=== PATIENT | male | born 1975 | race Caucasian/White ===

== ENCOUNTER 2018-01-06 06:32 | Emergency (ER) | payer OTHER ==
[~2018-01-06] VITALS: Ht 157.5 cm; Wt 70.8 kg
[2018-01-06 06:35] VITALS: Ht 157.5 cm; Wt 70.8 kg
[2018-01-06 07:16] LABS: BASOPHIL % 0.8 % (0-2); PLATELET COUNT 259 x10^3mcL (130-400); RED CELL DISTRIBUTION WIDTH 12.7 % (11.5-14.5)
[2018-01-06 07:18] LABS: CALCIUM 8.7 mg/dL (8.5-10.1); CARBON DIOXIDE 23.6 mmol/L (21-32); CHLORIDE SERUM 104 mmol/L (98-107); CREATININE SERUM 1.1 mg/dL (0.7-1.3); GFR1 > 60 mL/min; GLUCOSE SERUM 113 mg/dL (74-106); POTASSIUM SERUM 3.8 mmol/L (3.5-5.1); SODIUM SERUM 139 mmol/L (136-145)
[2018-01-06 07:22] LABS: ALBUMIN 4.3 g/dL (3.4-5.0); ALKALINE PHOSPHATASE 82 U/L (46-116); ALT/SGPT 35 U/L (16-63); AST/SGOT 15 U/L (15-37); BILIRUBIN TOTAL 1.6 mg/dL (0.20-1.00)
[2018-01-06 07:24] LABS: TOTAL PROTEIN, SERUM 8.4 g/dL (6.4-8.2)
[2018-01-06 09:01] LABS: AMPHETAMINE QUAL UR NONE DETECTED (See below)
[2018-01-06 11:52] VITALS: BP 126/72
== END 2018-01-06 11:52 | disposition home or self-care (01) ==
LOC: ED 06:32
PROVIDERS: Emergency Medicine
DX: R07.2 Precordial pain (principal); R20.2 Paresthesia of skin
CPT/HCPCS: 36415; Q0092

== ENCOUNTER 2018-04-02 09:26 | Emergency (ER) | payer OTHER ==
[~2018-04-02] VITALS: Ht 157.5 cm; Wt 67.1 kg
[2018-04-02 09:30] VITALS: BP 141/91; Ht 157.5 cm; Wt 67.1 kg
== END 2018-04-02 10:01 | disposition home or self-care (01) ==
LOC: ED 09:26
DX: S40.021A Contusion of right upper arm, initial encounter (principal); W18.30XA Fall on same level, unspecified, initial encounter; Y93.9 Activity, unspecified; Y92.89 Other specified places as the place of occurrence of the external cause; Y99.8 Other external cause status

== ENCOUNTER 2018-06-15 08:04 | Emergency (ER) | payer OTHER ==
[~2018-06-15] VITALS: Ht 157.5 cm; Wt 68.5 kg
[2018-06-15 08:14] VITALS: Ht 157.5 cm; Wt 68.5 kg
[2018-06-15 10:14] VITALS: BP 122/77
== END 2018-06-15 10:14 | disposition home or self-care (01) ==
LOC: ED 08:04
DX: J06.9 Acute upper respiratory infection, unspecified (principal)
CPT/HCPCS: 82962; Q0092

== ENCOUNTER 2018-09-05 14:33 | Emergency (ER) | payer OTHER ==
[~2018-09-05] VITALS: Ht 157.5 cm; Wt 68.9 kg
[2018-09-05 14:43] VITALS: Ht 157.5 cm; Wt 68.9 kg
[2018-09-05 16:40] LABS: BASOPHIL % 0.5 % (0-2); PLATELET COUNT 251 x10^3mcL (130-400); RED CELL DISTRIBUTION WIDTH 12.8 % (11.5-14.5)
[2018-09-05 16:44] LABS: CALCIUM 9.4 mg/dL (8.5-10.1); CARBON DIOXIDE 26.6 mmol/L (21-32); CHLORIDE SERUM 107 mmol/L (98-107); CREATININE SERUM 1.1 mg/dL (0.7-1.3); GFR1 > 60 mL/min; GLUCOSE SERUM 96 mg/dL (74-106); POTASSIUM SERUM 4.9 mmol/L (3.5-5.1); SODIUM SERUM 143 mmol/L (136-145)
[2018-09-05 16:48] LABS: ALBUMIN 4.4 g/dL (3.4-5.0); ALKALINE PHOSPHATASE 64 U/L (46-116); ALT/SGPT 36 U/L (16-63); AST/SGOT 18 U/L (15-37); BILIRUBIN TOTAL 2.1 mg/dL (0.20-1.00); LIPASE 151 IU/L (73-393); TOTAL PROTEIN, SERUM 8.2 g/dL (6.4-8.2)
[2018-09-05 17:17] VITALS: BP 128/74
== END 2018-09-05 17:17 | disposition home or self-care (01) ==
LOC: ED 14:33
PROVIDERS: Emergency Medicine
DX: L30.9 Dermatitis, unspecified (principal); R10.9 Unspecified abdominal pain
CPT/HCPCS: 36415

== ENCOUNTER 2018-10-02 22:22 | Emergency (ER) | payer OTHER ==
[~2018-10-02] VITALS: Ht 157.5 cm; Wt 69.9 kg
[2018-10-02 22:41] VITALS: Ht 157.5 cm; Wt 69.9 kg
[2018-10-02 23:58] LABS: BASOPHIL % 0.8 % (0-2); PLATELET COUNT 249 x10^3mcL (130-400); RED CELL DISTRIBUTION WIDTH 13.3 % (11.5-14.5)
[2018-10-03 00:10] LABS: CALCIUM 9.4 mg/dL (8.5-10.1); CARBON DIOXIDE 30.6 mmol/L (21-32); CHLORIDE SERUM 105 mmol/L (98-107); GFR1 > 60 mL/min; GLUCOSE SERUM 105 mg/dL (74-106); POTASSIUM SERUM 4.2 mmol/L (3.5-5.1); SODIUM SERUM 143 mmol/L (136-145)
[2018-10-03 00:17] LABS: ALKALINE PHOSPHATASE 69 U/L (46-116); ALT/SGPT 38 U/L (16-63); AST/SGOT 19 U/L (15-37); BILIRUBIN TOTAL 1.3 mg/dL (0.20-1.00); LIPASE 291 IU/L (73-393); TOTAL PROTEIN, SERUM 7.3 g/dL (6.4-8.2)
[2018-10-03 01:19] VITALS: BP 122/80
== END 2018-10-03 01:19 | disposition home or self-care (01) ==
LOC: ED 22:22
PROVIDERS: Emergency Medicine
DX: R10.33 Periumbilical pain (principal)
CPT/HCPCS: 36415

== ENCOUNTER 2019-05-28 17:35 | Emergency (ER) | payer OTHER ==
[~2019-05-28] VITALS: Ht 157.5 cm; Wt 68.5 kg
[2019-05-28 17:57] VITALS: BP 137/86; Ht 157.5 cm; Wt 68.5 kg
== END 2019-05-28 18:35 | disposition home or self-care (01) ==
LOC: ED 17:35
DX: R05 Cough (principal); R09.89 Other specified symptoms and signs involving the circulatory and respiratory systems